=== PATIENT | female | born 1955 | race Caucasian/White ===

== ENCOUNTER → 2017-10-22 | Outpatient (CLI) | payer BC ==
--- NOTE | 2017-10-24 07:01 | MM ---
Reason for exam: screening (asymptomatic). Last mammogram was performed 2 years and 6 months ago. History: Family history of breast cancer in paternal grandmother and breast cancer in paternal aunt. Taking estrogen for 10 years beginning at age 52. Taking progesterone for 10 years beginning at age 52. Physical Findings: A clinical breast exam by your physician is recommended on an annual basis and results should be correlated with mammographic findings. MG 3D Screening Mammo W/Cad Bilateral CC and MLO view(s) were taken. Prior study comparison: May 04, 2015, mammogram, performed at [facility]. March 31, 2014, mammogram, performed at [facility]. The breast tissue is heterogeneously dense. This may lower the sensitivity of mammography. Focal asymmetry upper outer right breast, 5cm from nipple. This finding is changed when compared with previous exams. ASSESSMENT: Incomplete: need additional imaging evaluation, BI-RAD 0 RECOMMENDATION: Special view mammogram of the right breast. If lesion persists on supplemental views, image directed ultrasound is recommended. [facility] will attempt to contact patient to return for supplemental views and ultrasound if indicated.
== END | disposition home or self-care (01) ==
LOC: RADMAMWWP 08:39
PROVIDERS: ATTEND Internal Medicine
DX: Z12.31 Encounter for screening mammogram for malignant neoplasm of breast (principal)
CPT/HCPCS: 77063; 77067

== ENCOUNTER → 2017-10-28 | Outpatient (CLI) | payer BC ==
--- NOTE | 2017-10-28 10:02 | MM ---
Reason for exam: additional evaluation requested from abnormal screening. Last mammogram was performed less than 1 month ago. History: Family history of breast cancer in paternal grandmother at age 60 and breast cancer in paternal aunt at age 55. Taking estrogen for 10 years beginning at age 52. Taking progesterone for 10 years beginning at age 52. Physical Findings: Nurse did not find any significant physical abnormalities on exam. MG 3D Work Up W/Cad RT Spot compression CC, spot compression MLO, and ML view(s) were taken of the right breast. Prior study comparison: October 22, 2017, bilateral MG 3d screening mammo w/cad. May 04, 2015, mammogram, performed at [facility]. There is no discrete abnormality including area of concern. These results were verbally communicated with the patient and result sheet given to the patient on 10/28/17. ASSESSMENT: Negative, BI-RAD 1 RECOMMENDATION: Return to routine screening mammogram schedule for both breasts.
== END | disposition home or self-care (01) ==
LOC: RADMAMWWP 09:01
PROVIDERS: ATTEND Internal Medicine
DX: R92.8 Other abnormal and inconclusive findings on diagnostic imaging of breast (principal)
CPT/HCPCS: 77065; G0279

== ENCOUNTER → 2022-08-14 | Outpatient (CLI) | payer MEDICARE | END | disposition home or self-care (01) | LOC: LABWHC1 14:10 | PROVIDERS: ATTEND Obstetrics & Gynecology | DX: Z01.812 Encounter for preprocedural laboratory examination (principal); Z20.822 Contact with and (suspected) exposure to COVID-19; C56.1 Malignant neoplasm of right ovary | CPT/HCPCS: 86304; 82378; 36415; U0003 ==

== ENCOUNTER → 2022-12-25 | Outpatient (CLI) | payer MEDICARE ==
[2022-12-25 10:56] LABS: African American GFR (CKD) >90 (>60 ml/min/1.73 sqM); Blood Urea Nitrogen 14 mg/dL (7-17); Non-African American GFR(CKD) 89 (>60 ml/min/1.73 sqM)
--- NOTE | 2022-12-25 12:43 | CT ---
EXAMINATION TYPE: CT ChestAbdPelvis w con DATE OF EXAM: 12/25/2022 COMPARISON: None. HISTORY: Appendix cancer diagnosed [address] DLP: 793.2 mGycm. Automated Exposure Control for Dose Reduction was Utilized. CONTRAST: CT scan of the thorax, abdomen and pelvis is performed with IV Contrast, patient injected with 70ml m L of Isovue 300. FINDINGS: LUNGS: The lungs are grossly clear, there is no concerning parenchymal mass or nodule identified. T here is no pleural effusion or pneumothorax seen. The tracheobronchial tree is patent. MEDIASTINUM: There are no greater than 1 cm hilar or mediastinal lymph nodes. No cardiomegaly or pe ricardial effusion is seen. There is four vessel origin from the aortic arch which is normal variant . LIVER/GB: Some adjacent ascites. PANCREAS: No significant abnormality is seen. SPLEEN: Some adjacent ascites. ADRENALS: No significant abnormality is seen. KIDNEYS: Symmetric corticomedullary uptake and excretion without hydronephrosis bilaterally. BOWEL: Oral contrast reaches level of the mid right colon. There is no suspicious small or large james l dilatation. There is mild to moderate wall thickening involving the left colon. There is moderate w all thickening in the mid to distal right colon extending to the hepatic flexure into the proximal tr ansverse colon. Extending superiorly from the posterior aspect of the cecum and there is a blind-endi ng tubular structure suspected dilated appendix terminating sagittal image 41 along the inferior elisa in of the right perirenal space. GENITAL ORGANS: Uterus is surgically absent. Small amount free fluid in the pelvis axial image 102. LYMPH NODES: No greater than 1cm abdominal or pelvic lymph nodes are appreciated. OSSEOUS STRUCTURES: No significant abnormality is seen. OTHER: Tiny fat-containing umbilical hernia axial image 79. Fluid surrounding the liver and spleen is slightly hyperdense more than normal and does not dependent ly layer raising concern for nonsimple fluid. IMPRESSION: Abnormal appearing appendix correlates with history of neoplasm. 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 No definitive measurable masses or adenopathy. No thoracic metastatic disease is seen.
== END | disposition home or self-care (01) ==
LOC: RADCTMAIN 10:02
PROVIDERS: ATTEND Internal Medicine Hematology & Oncology
DX: C18.1 Malignant neoplasm of appendix (principal); K63.89 Other specified diseases of intestine; R18.8 Other ascites
CPT/HCPCS: 82565; 84520; 71260; 74177; 36415; Q9967

== ENCOUNTER → 2023-03-10 | Outpatient (CLI) | payer MEDICARE ==
[2023-03-10 10:54] LABS: African American GFR (CKD) >90 (>60 ml/min/1.73 sqM); Blood Urea Nitrogen 9 mg/dL (7-17); Non-African American GFR(CKD) >90 (>60 ml/min/1.73 sqM)
--- NOTE | 2023-03-10 12:27 | CT ---
EXAMINATION TYPE: CT ChestAbdPelvis w con DATE OF EXAM: 03/10/2023 COMPARISON: Prior CT December 25, 2022 and older studies HISTORY: appendix ca diagnosed 8-[address] DLP: 762.5 mGycm. Automated Exposure Control for Dose Reduction was Utilized. CONTRAST: CT scan of the thorax, abdomen and pelvis is performed with oral and with IV Contrast, patient inject ed with 100 mL of Isovue 300. FINDINGS: LUNGS: The lungs remain grossly clear, there is no concerning new greater than 5 mm parenchymal mass or nodule identified. There is no pleural effusion or pneumothorax seen. The tracheobronchial tree is patent. MEDIASTINUM: There are no greater than 1 cm hilar or mediastinal lymph nodes. No cardiomegaly or pe ricardial effusion is seen. There is four vessel origin from aortic arch which is normal variant red emonstrated. LIVER/GB: Some adjacent low dense fluid redemonstrated. PANCREAS: No significant abnormality is seen. SPLEEN: Some adjacent low dense fluid redemonstrated. ADRENALS: No significant abnormality is seen. KIDNEYS: Symmetric corticomedullary uptake and excretion without hydronephrosis bilaterally. BOWEL: Oral contrast reaches level of the proximal transverse colon. There is no suspicious small or large bowel dilatation. There is mild to moderate fecal prominence in the transverse and left colon. Low-lying cecum into the right pelvis is redemonstrated. Extending posterior to the cecum there is pe rsistent low dense tubular shaped structure axial image 102 extending superiorly terminating around a xial image 90 similar in appearance to prior study. Surgical sutures in the right pelvis inferior to the second film at 104 are redemonstrated. GENITAL ORGANS: Small size uterus redemonstrated axial image 108. LYMPH NODES: No new greater than 1cm abdominal or pelvic lymph nodes are appreciated. OSSEOUS STRUCTURES: No significant abnormality is seen. OTHER: Tiny fat-containing umbilical hernia sagittal image 55 redemonstrated. Fluid surrounding the liver and spleen is slightly hyperdense more than normal and does not dependent ly layer similar to prior. Some mass effect along the left lateral margin of the spleen remains prese nt. IMPRESSION: Nonsimple ascites surrounding liver and spleen is stable. Hypodense area along posterior aspect of the cecum extending superiorly is stable could reflect scar tissue versus stable residual neoplasm. No new or enlarging masses or adenopathy.
== END | disposition home or self-care (01) ==
LOC: RADCTMAIN 10:03
PROVIDERS: ATTEND Internal Medicine Hematology & Oncology
DX: C18.1 Malignant neoplasm of appendix (principal); R18.8 Other ascites
CPT/HCPCS: 82565; 84520; 71260; 74177; 36415; Q9967

== ENCOUNTER → 2024-02-17 | Outpatient (CLI) | payer MEDICARE ==
--- NOTE | 2024-02-17 11:40 | XR ---
EXAMINATION TYPE: XR lumbosacral spine min 4V DATE OF EXAM: 02/17/2024 10:53 AM CLINICAL INDICATION:Female, 68 years old with history of [id number] LBP; COMPARISON: None TECHNIQUE: XR lumbosacral spine min 4V - Frontal, lateral , bilateral oblique and coned in L5-S1 late ral views of the spine. FINDINGS: No evidence of any acute osseous pathology. No evidence of loss of vertebral body height i s seen. There is normal alignment of the lumbar vertebral bodies. Mild scattered disc space narrowing . Multilevel marginal osteophyte formation throughout the visualized spine. There is facet joint arth ropathy throughout the spine. Scattered at least mild neural foraminal stenosis. IMPRESSION: 1. No acute fracture. 2. Mild to moderate multilevel disc degeneration.
== END | disposition home or self-care (01) ==
LOC: RADXRYALE 10:17
PROVIDERS: ATTEND Internal Medicine
DX: M51.37 Other intervertebral disc degeneration, lumbosacral region (principal)
CPT/HCPCS: 72110

== ENCOUNTER → 2024-03-05 | Outpatient (CLI) | payer MEDICARE ==
[2024-03-05 16:20] LABS: Carcinoembryonic Antigen 5.8 ng/mL (0.0-4.9)
[2024-03-05 23:31] LABS: Cancer Antigen 19-9 17.9 U/mL (0.0-34.9)
== END | disposition home or self-care (01) ==
LOC: LABWHC1 09:21
PROVIDERS: ATTEND Surgery
DX: C78.6 Secondary malignant neoplasm of retroperitoneum and peritoneum (principal)
CPT/HCPCS: 36415; 82378; 86301; 86304

== ENCOUNTER → 2024-06-15 | Outpatient (CLI) | payer MEDICARE ==
[2024-06-15 14:05] LABS: African American GFR (CKD) 79 (>60 ml/min/1.73 sqM); Blood Urea Nitrogen 15 mg/dL (7-17); Non-African American GFR(CKD) 69 (>60 ml/min/1.73 sqM)
--- NOTE | 2024-06-15 15:38 | CT ---
EXAMINATION TYPE: CT ChestAbdPelvis w con CT DLP: 854.8 mGycm, Automated exposure control for dose reduction was used. 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 Priors in PACS. Technique: CT ChestAbdPelvis w con; Multiple axial images were obtained. Two-dimensional coronal and sagittal reconstructions were obtained. Contrast used:100ML mL of Isovue 300 with IV Contrast, Oral contrast used: with Oral Contrast Findings: CHEST: LUNGS/ PLEURA: No focal consolidation, pneumothorax or pleural effusion. AIRWAY: Patent and unremarkable. HEART: Size within normal limits. MEDIASTINUM: No gross evidence of adenopathy. VASCULATURE: No aortic aneurysm. MUSCULOSKELETAL: No acute osseous abnormalities. SOFT TISSUES/LYMPH NODES: Unremarkable. LOWER NECK: No significant findings. ABDOMEN: ABDOMEN LIVER: Unremarkable GALLBLADDER AND BILE DUCTS: Gallbladder is surgically absent. PANCREAS: Unremarkable. SPLEEN: Unremarkable. ADRENAL GLANDS: Unremarkable. KIDNEYS AND URETERS: Moderate right hydroureteronephrosis with obstruction near the distal ureter in the pelvis on clear exact etiology there is some ill-defined soft tissue in this region. Unclear if t his is the uterus or tumor. PELVIS BLADDER: Unremarkable REPRODUCTIVE: Unremarkable. ABDOMEN & PELVIS STOMACH AND BOWEL: No evidence of bowel obstruction. The area of prior PET max is a enlarged tubular structure compared to prior measuring 41 x 16 x 24 mm PERITONEUM/RETROPERITONEUM: No evidence of pneumoperitoneum. Decrease in free fluid throughout the da y. VASCULATURE: No evidence of aortic aneurysm. MUSCULOSKELETAL: No acute osseous abnormalities, compression deformity of L4 vertebral body with 25% height loss and mild retropulsion which is not seen on prior up to 3 mm. LYMPH NODES: No gross evidence for lymphadenopathy. SOFT TISSUE/ABDOMINAL WALL: Unremarkable IMPRESSION: 1. Enlarging tubular structure in the right lower quadrant extending off the cecum in the area of pr ior what was thought to be appendix. Findings concerning for tumor given history. 2. Moderate right hydroureteronephrosis with possible obstruction near the distal ureter unclear stormy ology, there is is ill-defined heterogenous tissue in this region the obstruction , findings could re present scar tissue if patient has history of surgery given what is thought to be surgical clips in t his region. Unclear if the soft tissue obstruction is tumor or uterus. Correlate with history of surg tez. 3. New compression deformity of the L4 vertebral body with 25% height loss and mild retropulsion.
== END | disposition home or self-care (01) ==
LOC: RADCTMAIN 13:20
PROVIDERS: ATTEND Internal Medicine Hematology & Oncology
DX: C18.1 Malignant neoplasm of appendix (principal); C48.2 Malignant neoplasm of peritoneum, unspecified; C54.9 Malignant neoplasm of corpus uteri, unspecified; N13.30 Unspecified hydronephrosis; R94.5 Abnormal results of liver function studies; M43.8X6 Other specified deforming dorsopathies, lumbar region
CPT/HCPCS: 82565; 84520; 71260; 74177; 36415; Q9967

== ENCOUNTER 2024-08-30 11:49 | Day surgery (SDC) | payer MEDICARE ==
[~2024-08-30 11:49] MED LIST: HYDROmorphone 0.5 MG/0.5 ML SYRINGE IVP PRN; LIDOCAINE 1% (10MG/ML) FOR IV START INTRADERMA PRN; Pre Op ABX Message 1 EACH MISC MISCELLANE ONE; droPERidol 5 MG/2 ML VIAL IVP ONE
[2024-08-30 12:42] VITALS: BMI 29.3
[2024-08-30] MEDS: IV FLUID CONTINUATION 1,000 ML IV ONE (12:45)
[2024-08-30 13:13] LABS: Basophils # (A) 0.1 k/uL (0-0.2); Basophils % (A) 1 %; Eosinophils # (A) 0.2 k/uL (0-0.7); Eosinophils % (A) 3 %; HCT 41.4 % (34.0-46.0); HGB 13.5 gm/dL (11.4-16.0); Lymphocytes # (A) 2.7 k/uL (1.0-4.8); Lymphocytes % (A) 35 %; MCHC 32.5 g/dL (31.0-37.0); MCV 98.3 fL (80.0-100.0); Mean Platelet Volume 7.2; Monocytes # (A) 0.6 k/uL (0-1.0); Monocytes % (A) 8 %; Neutrophils # (A) 3.8 k/uL (1.3-7.7); Neutrophils % (A) 51 %; Platelet Count 417 k/uL (150-450); RBC 4.21 m/uL (3.80-5.40); RDW 13.1 % (11.5-15.5); WBC 7.5 k/uL (3.8-10.6)
[2024-08-30] MEDS: LACTATED RINGERS 1,000 ML IV SCH (13:14)
[2024-08-30] MEDS: DEXAMETHASONE SOD PHOSPHATE 4 MG/ML 1 ML VIAL IV ONE (13:14)
[2024-08-30] MEDS: ONDANSETRON 4 MG/2 ML VIAL IVP ONE (13:14)
[2024-08-30 13:21] LABS: African American GFR (CKD) >90 (>60 ml/min/1.73 sqM); Anion Gap 7 mmol/L; Blood Urea Nitrogen 16 mg/dL (7-17); Calcium 9.6 mg/dL (8.4-10.2); Carbon Dioxide 25 mmol/L (22-30); Chloride 108 mmol/L (98-107); Glucose 99 mg/dL (74-99); Non-African American GFR(CKD) 89 (>60 ml/min/1.73 sqM); Potassium 4.6 mmol/L (3.5-5.1); Sodium 140 mmol/L (137-145)
[2024-08-30] MEDS: HEPARIN SODIUM,PORCINE 5,000 UNIT/ML 1 ML VIAL SQ STA (13:22)
[2024-08-30] MEDS: ACETAMINOPHEN TAB 500 MG TAB PO STA (13:27)
--- NOTE | 2024-08-30 13:27 | P.GSHP ---
History of Present Illness H&P Date: 08/30/24 Chief Complaint: Appendiceal cancer 69-year-old female here today for Port-A-Cath placement. Patient recently diagnosed with malignancy involving the cecum and appendix. This is locally advanced. Patient had a ureteral stent placed by urology. Starting neoadjuvant chemotherapy soon. Here today for Port-A-Cath placement for the administration of chemotherapy. 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 cervical stage i. ovarian cyst, blocked ureter. syncope event History of Any Multi-Drug Resistant Organisms: None Reported Past Surgical History: Appendectomy, Bladder Surgery, Section, Cholec ystectomy, Hysterectomy Additional Past Surgical History / Comment(s): HIPEC heated intraperitoneal chemotherapy also removed spleen. uretal stent. colonoscopy. bladder gigi pension with sling Past Psychological History: Anxiety, Depression Smoking Status: Never smoker Past Alcohol Use History: Occasional Past Drug Use History: Marijuana Additional Drug Use History / Comment(s): gummies once or twice a week. etoh occassional 1-2 times a week - Past Family History Sister(s) Family Medical History: Cancer Additional Family Medical History / Comment(s): cervical Brother(s) Family Medical History: Cancer Additional Family Medical History / Comment(s): pancreatic with war exposure Medications and Allergies Home Medications Medication Instructions Recorded Confirmed Type L.acidoph,Paracasei, B.lactis 1 each PO DAILY 08/30/24 08/30/24 History [Probiotic] Zinc Gluconate [Zinc] 50 mg PO DAILY 08/30/24 08/30/24 History Allergies Allergy/AdvReac Type Severity Reaction Status Date / Time codeine AdvReac Unknown Verified 08/30/24 12:13 surgical glue AdvReac Rash/Hives Uncoded 08/30/24 12:22 Surgical - Exam Vital Signs Temp Pulse Resp BP Pulse Ox 97.0 F L 77 16 128/76 97 08/30/24 12:22 08/30/24 12:22 08/30/24 12:22 08/30/24 12:22 08/30/24 12:22 Physical exam: General: Well-developed, well-nourished HEENT: Normocephalic, sclerae nonicteric Abdomen: Nontender, nondistended Extremities: No edema Neuro: Alert and oriented Results - Labs 08/30/24 13:09 08/30/24 13:09 Abnormal Lab Results - Last 24 Hours (Table) 08/30/24 Range/Units 13:09 Chloride 108 H (98-107) mmol/L Diabetes panel 08/30/24 Range/Units 13:09 Sodium 140 (137-145) mmol/L Potassium 4.6 (3.5-5.1) mmol/L Chloride 108 H (98-107) mmol/L Carbon Dioxide 25 (22-30) mmol/L BUN 16 (7-17) mg/dL Creatinine 0.70 (0.52-1.04) mg/dL Glucose 99 (74-99) mg/dL Calcium 9.6 (8.4-10.2) mg/dL Calcium panel 08/30/24 Range/Units 13:09 Calcium 9.6 (8.4-10.2) mg/dL Pituitary panel 08/30/24 Range/Units 13:09 Sodium 140 (137-145) mmol/L Potassium 4.6 (3.5-5.1) mmol/L Chloride 108 H (98-107) mmol/L Carbon Dioxide 25 (22-30) mmol/L BUN 16 (7-17) mg/dL Creatinine 0.70 (0.52-1.04) mg/dL Glucose 99 (74-99) mg/dL Calcium 9.6 (8.4-10.2) mg/dL Adrenal panel 08/30/24 Range/Units 13:09 Sodium 140 (137-145) mmol/L Potassium 4.6 (3.5-5.1) mmol/L Chloride 108 H (98-107) mmol/L Carbon Dioxide 25 (22-30) mmol/L BUN 16 (7-17) mg/dL Creatinine 0.70 (0.52-1.04) mg/dL Glucose 99 (74-99) mg/dL Calcium 9.6 (8.4-10.2) mg/dL Assessment and Plan (1) Cancer of appendix Narrative/Plan: Will proceed with Port-A-Cath placement at this time. Risks of bleeding, infection, DVT, pneumothorax, catheter malfunction, anesthesia related complications were discussed. The patient understands and wishes to proceed. Current Visit: Yes Status: Acute Code(s): C18.1 - MALIGNANT NEOPLASM OF APPENDIX SNOMED Code(s): 022159366
[2024-08-30] MEDS ORDERED: MIDAZOLAM 2 MG/2 ML VIAL ONE (14:17)
[2024-08-30] MEDS ORDERED: fentaNYL (PF) 50 MCG/ML 2 ML AMP ONE (14:17)
[2024-08-30] MEDS ORDERED: PROPOFOL 10 MG/ML 20 ML VIAL IV ONE (14:17)
[2024-08-30] MEDS ORDERED: LIDOCAINE 1% INJ 10MG/ML (20 ML MDV) ONE (14:17)
[2024-08-30] MEDS: LIDOCAINE 1% INJ 10MG/ML (20 ML MDV) SQ ONE ×2 (14:54)
--- NOTE | 2024-08-30 15:13 | FL ---
EXAMINATION TYPE: FL guided central line placemt HISTORY: Fluoroscopy time Impression: 1. Fluoroscopy support provided to the referring physician. [facility], , 08/30/2024 3:11 PM
[2024-08-30] MEDS ORDERED: NALOXONE 0.4 MG/ML 1 ML VIAL IV PRN (15:14)
[2024-08-30] MEDS ORDERED: HYDROcodone/APAP 5-325MG 1 EACH TAB PO PRN (15:14)
--- NOTE | 2024-08-30 15:17 | P.OP ---
Date of Procedure: 08/30/24 Procedure(s) Performed: PREOPERATIVE DIAGNOSIS: Appendiceal cancer POSTOPERATIVE DIAGNOSIS: Same PROCEDURE: Port-A-Cath placement with fluoroscopic and ultrasound guidance SURGEON: Trent EBL: Minimal ANESTHESIA: General COMPLICATIONS: None OPERATIVE PROCEDURE: Patient was brought and placed on the operative table in the supine position. The patient was placed under general anesthesia at that time. The chest and neck were prepped and draped in usual sterile fashion. The ultrasound probe was used to identify the location of the right internal jugular vein. The skin was localized with lidocaine. The Seldinger needle was advanced into the IJ under ultrasound guidance. The wire was advanced through the needle under fluoroscopic guidance into the superior vena cava. A port pocket was created in the right infraclavicular location. The catheter was tunneled from the wire entrance site to the port pocket. The port was then connected to the catheter. The dilator introducer was threaded over the guidewire. The guidewire and dilator were then removed. The catheter was advanced through the introducer and introducer was then removed. The tip was seen to be in the right atrial junction via fluoroscopy. A picture of the radiograph showing the tip of the catheter was taken. Port was flushed with both saline and a Hep-Lock solution. There was good flow both in and out of the port. The port was sutured in underlying tissues using 3-0 silk sutures. The subcutaneous tissues were reapproximated using 3-0 Vicryl sutures and the skin at both locations using 4-0 Monocryl sutures. Skin glue and sterile dressings then applied. DISPOSITION: Stable to recovery room
[2024-08-30 15:24] VITALS: TEMP 97
--- NOTE | 2024-08-30 15:40 | XR ---
EXAMINATION TYPE: XR chest 1V confirm line plcmt DATE OF EXAM: 08/30/2024 COMPARISON: 06/09/2015 CLINICAL INDICATION: Female, 69 years old with history of Check Line placement; , TECHNIQUE: XR chest 1V confirm line plcmt views of the chest. FINDINGS: The lungs are clear and there is no pneumothorax, pleural effusion, or focal pneumonia. Heart size normal and no overt failure. Osseous structures demonstrate hypertrophic and degenerative changes of the spine. And Mediport catheter seen with the tip overlying the cavoatrial junction. Diffuse osteope dina and arthropathy of the shoulders. Mild ectasia of the aortic arch. Linear changes left lung base typical of atelectasis or scarring. IMPRESSION: 1. Mediport catheter with tip overlying cavoatrial junction. No pneumothorax.. [facility], , 08/30/2024 3:38 PM
[2024-08-30 16:50] VITALS: BP 147/90; PULSE 68; RESP 20
== END 2024-08-30 17:02 | disposition home or self-care (01) ==
LOC: OR 11:49
PROVIDERS: ATTEND Surgery
DX: C18.1 Malignant neoplasm of appendix (principal); K21.9 Gastro-esophageal reflux disease without esophagitis; Z88.5 Allergy status to narcotic agent; Z90.49 Acquired absence of other specified parts of digestive tract; Z90.710 Acquired absence of both cervix and uterus; Z98.890 Other specified postprocedural states; Z79.899 Other long term (current) drug therapy
CPT/HCPCS: 80048; 85025; 77001; 36561; C1788; J2250; J1644; J1100; J2405; J2003; J3010; J2704

== ENCOUNTER → 2024-11-01 | Outpatient (CLI) | payer MEDICARE ==
[2024-11-01 13:56] LABS: African American GFR (CKD) >90 (>60 ml/min/1.73 sqM); Blood Urea Nitrogen 12 mg/dL (7-17); Non-African American GFR(CKD) >90 (>60 ml/min/1.73 sqM)
--- NOTE | 2024-11-01 16:47 | CT ---
EXAMINATION TYPE: CT abdomen pelvis w con DATE OF EXAM: 11/01/2024 3:23 PM COMPARISON: None. 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 TECHNIQUE: Axial images were obtained from above the diaphragm to the pubic rami in the axial plane a t 5 mm thick sections. Reconstructed images are reviewed on the computer in the coronal plane. CONTRAST: 100 ml mL of Isovue 300. Study performed with Oral Contrast DLP: 764.3 mGycm, Automated exposure control for dose reduction was used. FINDINGS: Limited CT sections are obtained the lung bases. Some streaky opacities within the bilateral lung ba ses. Lungs otherwise are clear. CT ABDOMEN: Tiny 0.9 cm nodule is posterior to the liver. Series 3 image 26 this was present previous ly. Liver: Normal Spleen: Surgically absent. Old splenic artery aneurysm may be present. Pancreas: Normal Adrenal glands: The adrenal glands are normal. Gallbladder: Normal Kidneys: Right ureteral stent is present. No masses are evident. No hydronephrosis is present. No c ysts are present. Delayed images were obtained through the kidneys, which remain unremarkable. Aorta: Vascular calcification is within the aorta. Inferior vena cava: Normal. CT PELVIS: Loops of bowel within the abdomen and pelvis are normal. There are loops of bowel lacking oral co ntrast are incompletely distended limiting bowel evaluation. Appendix: Surgically absent. Just inferior to some surgical clips there is an area of increased size density. This measures 3.6 by 4.3 x 4.0 cm. Prior measurement 4.1 x 1.6 cm. in size. This is a change from comparison. Recurrent mass or ovarian changes could be considered within the differential. Urinary bladder: Normal. Genitourinary structures: Uterus is visualized appears normal. Adnexal regions appear normal. Osseous structures: No suspicious lytic or sclerotic lesions. Facet degenerative changes are present. IMPRESSION: 1. There may be a cyst or increase in size of the right lower quadrant mass superior to surgical cli ps in the right hemipelvis. Consider additional workup [facility], Workstation: [id number], 11/01/2024 4:44 PM
== END | disposition home or self-care (01) ==
LOC: RADCTMAIN 13:16
PROVIDERS: ATTEND Internal Medicine Hematology & Oncology
DX: C18.1 Malignant neoplasm of appendix (principal); C48.2 Malignant neoplasm of peritoneum, unspecified; R94.5 Abnormal results of liver function studies; C54.9 Malignant neoplasm of corpus uteri, unspecified; Z96.698 Presence of other orthopedic joint implants
CPT/HCPCS: 82565; 84520; 74177; 36415; Q9967